=== PATIENT | female | born 1940 | race Caucasian/White ===

== ENCOUNTER 2018-10-20 09:37 | Inpatient (IN) | payer MEDICARE, BC ==
[2018-10-20] MEDS ORDERED: ETOMIDATE 20 MG INJ (10:46)
[2018-10-20] MEDS ORDERED: ROCURONIUM 50 MG INJ (10:46)
[2018-10-20] MEDS: VANCOMYCIN 1 GM (PMX) 250 ML IVPB ×2 (10:46→18:13)
[2018-10-20] MEDS ORDERED: LIDOCAINE 2% (SDV) 5 ML INJ (10:46)
[2018-10-20] MEDS ORDERED: MIDAZOLAM 1 MG/ML 2 ML INJ (10:46)
[2018-10-20] MEDS ORDERED: SUCCINYLCHOLINE CHLORIDE 100 MG/5 ML SYG IV (10:46)
[2018-10-20] MEDS: LACTATED RINGER'S 1,000 ML IV* (10:46)
[2018-10-20] MEDS ORDERED: MEPERIDINE 25 MG INJ IV (11:00)
[2018-10-20] MEDS ORDERED: LABETALOL HCL 20MG INJ IV (11:00)
[2018-10-20] MEDS ORDERED: hydrALAzine 20 MG INJ IV (11:00)
[2018-10-20] MEDS ORDERED: CA CHLORIDE 10% 10 ML SYRINGE (11:48)
[2018-10-20] MEDS ORDERED: HEPARIN 1000 UNITS/ML 10 ML INJ (11:48)
[2018-10-20] MEDS ORDERED: DIPHENHYDRAMINE 50 MG INJ IV (12:00)
[2018-10-20] MEDS ORDERED: AL HYDROX/MG HYDROX/SIMETH 30 ML CUP PO (12:00)
[2018-10-20] MEDS ORDERED: DIPHENHYDRAMINE 25 MG CAP PO (12:00)
[2018-10-20] MEDS ORDERED: MEPERIDINE 25 MG INJ IM ×2 (12:00→13:04)
[2018-10-20] MEDS ORDERED: CEPASTAT LOZENGE MT (12:00)
[2018-10-20] MEDS ORDERED: NALOXONE (0.4 MG/ML) INJ IV (12:00)
[2018-10-20] MEDS: VANCOMYCIN 1 GM INJ (12:50)
[2018-10-20] MEDS: THROMBIN (BOVINE) 5,000 UNIT VIAL TP (12:50)
[2018-10-20] MEDS: BUPIVACAINE 0.5%/EPI (SDV) 30 ML INJ (12:50)
[2018-10-20] MEDS: SURGIFOAM POWDER 1 GM KIT (12:50)
[2018-10-20] MEDS ORDERED: ONDANSETRON 4 MG INJ (14:00)
[2018-10-20] MEDS ORDERED: DEXAMETHASONE 4 MG/ML 5 ML INJ (14:00)
[2018-10-20] MEDS: ONDANSETRON 4 MG INJ IV (15:07)
[2018-10-20] MEDS: HYDROmorphONE 1 MG/5 ML IV SYRINGE IV ×3 (15:25→16:09)
[2018-10-20] MEDS ORDERED: hydrALAzine 20 MG INJ (15:32)
[2018-10-20] MEDS ORDERED: FENTAnyl 50 MCG/ML VIAL (17:04)
[2018-10-20] MEDS: MEPERIDINE 50 MG INJ IM ×2 (17:10→21:14)
[2018-10-20] MEDS: D5W-0.45 NACL + KCL 20 MEQ 1,000 ML IV ×2 (17:11→21:31)
[2018-10-20] MEDS ORDERED: ESOMEPRAZOLE MAG TRIHYDRATE 10 MG PO (18:00)
[2018-10-20] MEDS: traMADol 50 MG TAB PO ×2 (18:32→23:21)
[2018-10-20] MEDS: DOCUSATE SODIUM 100 MG CAP PO (21:14)
[2018-10-20] MEDS: ATORVASTATIN 10 MG TAB PO (21:14)
[2018-10-20] MEDS: PROPRANOLOL 20 MG TAB PO (21:28)
[2018-10-21] MEDS: LORAZEPAM 1 MG TAB PO ×2 (00:19→21:16)
[2018-10-21 05:04] LABS: ADD MAN DIFF? NO
[2018-10-21 05:12] LABS: BASOPHILS % 0.4 % (0.0-2.0); EOSINOPHILS % 0.1 % (0.0-7.0); HEMATOCRIT 34.1 % (37.0-47.0); HEMOGLOBIN 11.3 g/dl (12.0-16.0); LYMPHOCYTES # 0.8 10^3/ul (0.8-2.9); LYMPHOCYTES % 11.6 % (15.0-51.0); MEAN CORPUSCULAR HEMOGLOBIN 32.8 pg (29.0-33.0); MEAN CORPUSCULAR HGB CONC 33.1 g/dl (32.0-37.0); MEAN CORPUSCULAR VOLUME 99.1 fl (82.0-101.0); MEAN PLATELET VOLUME 10.7 fl (7.4-10.4); MONOCYTE # 0.7 10^3/ul (0.3-0.9); MONOCYTES % 10.1 % (0.0-11.0); NEUTROPHIL # 5.3 10^3/ul (1.6-7.5); NEUTROPHILS % 77.4 % (39.0-77.0); PLATELET COUNT 133 10^3/UL (140-415); RED BLOOD COUNT 3.44 10^6/ul (4.20-5.40); RED CELL DISTRIBUTION WIDTH 12.6 % (11.5-14.5)
[2018-10-21 05:12] LABS: WHITE BLOOD COUNT 6.8 10^3/ul (4.8-10.8)
[2018-10-21 05:33] LABS: ANION GAP 4 (5-13); BLOOD UREA NITROGEN 16 mg/dl (7-20); CALCIUM 9.1 mg/dl (8.4-10.2); CARBON DIOXIDE 30 mmol/L (21-31); CHLORIDE 103 mmol/L (97-110); CREATININE 0.71 mg/dl (0.44-1.00); GLUCOSE 134 mg/dl (70-220); MAGNESIUM 1.4 mg/dl (1.7-2.5); POTASSIUM 4.2 mmol/L (3.5-5.1); SODIUM 137 mmol/L (135-144)
[2018-10-21] MEDS: ACETAMINOPHEN 325 MG TAB PO (05:38)
[2018-10-21] MEDS: VANCOMYCIN 1 GM (PMX) 250 ML IVPB (05:38)
[2018-10-21] MEDS: ONDANSETRON 4 MG INJ IV ×3 (07:01→13:55)
[2018-10-21] MEDS: D5W-0.45 NACL + KCL 20 MEQ 1,000 ML IV (07:31)
[2018-10-21] MEDS ORDERED: ACET/BUTAL/CAFF/CODEINE CAP PO (08:30)
[2018-10-21] MEDS: PROPRANOLOL 20 MG TAB PO ×2 (09:00→20:26)
[2018-10-21] MEDS: DOCUSATE SODIUM 100 MG CAP PO ×2 (09:00→20:27)
[2018-10-21] MEDS: SOD CHLORIDE 0.9% 1,000 ML IV ×2 (09:37→21:17)
[2018-10-21] MEDS: PANTOPRAZOLE 40 MG INJ IV ×2 (09:37→18:00)
[2018-10-21] MEDS: METOCLOPRAMIDE 10 MG INJ IV ×2 (09:50→15:53)
[2018-10-21] MEDS: MEPERIDINE 50 MG INJ IM ×3 (09:57→20:27)
[2018-10-21] MEDS: MAGNESIUM SULFATE 3 GM in DEXTROSE 5% 100 ML IVPB (13:48)
[2018-10-21] MEDS ORDERED: METOCLOPRAMIDE 10 MG INJ IV (20:10)
[2018-10-21] MEDS: ATORVASTATIN 10 MG TAB PO (20:27)
[2018-10-22] MEDS: ACETAMINOPHEN 325 MG TAB PO ×3 (00:49→18:31)
[2018-10-22] MEDS: PANTOPRAZOLE 40 MG INJ IV ×2 (05:26→18:20)
[2018-10-22] MEDS: MEPERIDINE 50 MG INJ IM ×3 (05:29→21:45)
[2018-10-22 05:30] LABS: ADD MAN DIFF? NO
[2018-10-22 05:41] LABS: BASOPHILS % 0.1 % (0.0-2.0); EOSINOPHILS % 0.1 % (0.0-7.0); HEMATOCRIT 31.1 % (37.0-47.0); HEMOGLOBIN 10.7 g/dl (12.0-16.0); LYMPHOCYTES % 14.2 % (15.0-51.0); MEAN CORPUSCULAR HGB CONC 34.4 g/dl (32.0-37.0); MEAN PLATELET VOLUME 11.7 fl (7.4-10.4); MONOCYTE # 0.6 10^3/ul (0.3-0.9); MONOCYTES % 8.8 % (0.0-11.0); NEUTROPHIL # 5.5 10^3/ul (1.6-7.5); NEUTROPHILS % 76.4 % (39.0-77.0); PLATELET COUNT 124 10^3/UL (140-415); RED BLOOD COUNT 3.24 10^6/ul (4.20-5.40); RED CELL DISTRIBUTION WIDTH 12.5 % (11.5-14.5)
[2018-10-22 05:41] LABS: WHITE BLOOD COUNT 7.3 10^3/ul (4.8-10.8)
[2018-10-22] MEDS: SOD CHLORIDE 0.9% 1,000 ML IV ×2 (05:53→14:57)
[2018-10-22 06:10] LABS: ANION GAP 6 (5-13); BLOOD UREA NITROGEN 9 mg/dl (7-20); CALCIUM 8.6 mg/dl (8.4-10.2); CARBON DIOXIDE 28 mmol/L (21-31); CHLORIDE 101 mmol/L (97-110); GLUCOSE 99 mg/dl (70-220); PHOSPHORUS 2.9 mg/dl (2.5-4.9); POTASSIUM 3.5 mmol/L (3.5-5.1); SODIUM 135 mmol/L (135-144)
[2018-10-22] MEDS: METOCLOPRAMIDE 10 MG INJ IV ×3 (07:39→21:40)
[2018-10-22] MEDS: PROPRANOLOL 20 MG TAB PO ×2 (08:52→20:54)
[2018-10-22] MEDS: DEXAMETHASONE 4 MG/ML 1 ML INJ IV (08:53)
[2018-10-22] MEDS: DOCUSATE SODIUM 100 MG CAP PO ×2 (08:58→20:56)
[2018-10-22] MEDS: ACET/BUTAL/CAFF TAB PO ×2 (14:43→18:31)
[2018-10-22] MEDS: ATORVASTATIN 10 MG TAB PO (20:53)
[2018-10-22] MEDS: LORAZEPAM 1 MG TAB PO (23:07)
[2018-10-23] MEDS: ACET/BUTAL/CAFF TAB PO ×3 (00:24→17:45)
[2018-10-23] MEDS: ACETAMINOPHEN 325 MG TAB PO ×4 (00:24→21:47)
[2018-10-23] MEDS: SOD CHLORIDE 0.9% 1,000 ML IV ×2 (01:53→09:48)
[2018-10-23] MEDS: MEPERIDINE 50 MG INJ IM ×4 (04:07→15:59)
[2018-10-23] MEDS: METOCLOPRAMIDE 10 MG INJ IV (04:10)
[2018-10-23] MEDS: PANTOPRAZOLE 40 MG INJ IV (05:26)
[2018-10-23 05:51] LABS: ADD MAN DIFF? NO
[2018-10-23 05:58] LABS: BASOPHILS % 0.3 % (0.0-2.0); EOSINOPHILS % 0.4 % (0.0-7.0); HEMATOCRIT 32.3 % (37.0-47.0); HEMOGLOBIN 10.8 g/dl (12.0-16.0); LYMPHOCYTES % 14.9 % (15.0-51.0); MEAN CORPUSCULAR HEMOGLOBIN 32.5 pg (29.0-33.0); MEAN CORPUSCULAR HGB CONC 33.4 g/dl (32.0-37.0); MEAN CORPUSCULAR VOLUME 97.3 fl (82.0-101.0); MEAN PLATELET VOLUME 11.5 fl (7.4-10.4); MONOCYTE # 0.7 10^3/ul (0.3-0.9); MONOCYTES % 10.6 % (0.0-11.0); NEUTROPHILS % 73.1 % (39.0-77.0); PLATELET COUNT 132 10^3/UL (140-415); RED BLOOD COUNT 3.32 10^6/ul (4.20-5.40); RED CELL DISTRIBUTION WIDTH 12.6 % (11.5-14.5)
[2018-10-23 05:58] LABS: WHITE BLOOD COUNT 6.8 10^3/ul (4.8-10.8)
[2018-10-23 06:26] LABS: ALANINE AMINOTRANSFERASE 31 IU/L (13-69); ALBUMIN 3.1 g/dl (3.3-4.9); ALBUMIN/GLOBULIN RATIO 1.19; ALKALINE PHOSPHATASE 74 IU/L (42-121); ANION GAP 8 (5-13); ASPARTATE AMINO TRANSFERASE 34 IU/L (15-46); BILIRUBIN,INDIRECT 0.4 mg/dl (0-1.1); BILIRUBIN,TOTAL 0.4 mg/dl (0.2-1.3); BLOOD UREA NITROGEN 12 mg/dl (7-20); CALCIUM 8.7 mg/dl (8.4-10.2); CARBON DIOXIDE 26 mmol/L (21-31); CHLORIDE 105 mmol/L (97-110); CREATININE 0.57 mg/dl (0.44-1.00); GLUCOSE 81 mg/dl (70-220); POTASSIUM 3.5 mmol/L (3.5-5.1); SODIUM 139 mmol/L (135-144); TOTAL PROTEIN 5.7 g/dl (6.1-8.1)
[2018-10-23 06:41] LABS: PHOSPHORUS 2.5 mg/dl (2.5-4.9)
[2018-10-23 06:41] LABS: MAGNESIUM 1.7 mg/dl (1.7-2.5)
[2018-10-23] MEDS: PROPRANOLOL 20 MG TAB PO ×2 (08:12→21:44)
[2018-10-23] MEDS: DOCUSATE SODIUM 100 MG CAP PO ×2 (08:20→21:43)
[2018-10-23] MEDS: POTASSIUM CHLORIDE (SR) 10 MEQ TAB PO (09:47)
[2018-10-23] MEDS: PANTOPRAZOLE (EC) 40 MG TAB PO (17:44)
[2018-10-23] MEDS: MEPERIDINE 50 MG INJ IV ×2 (18:18→20:01)
[2018-10-23] MEDS: MAGNESIUM SULFATE 2 GM/50 ML 50 ML IVPB (20:00)
[2018-10-23] MEDS: ATORVASTATIN 10 MG TAB PO (21:43)
[2018-10-23] MEDS: traMADol 50 MG TAB PO (21:47)
[2018-10-23] MEDS ORDERED: MEPERIDINE 50 MG INJ IV (22:00)
[2018-10-24] MEDS: MEPERIDINE 50 MG INJ IV ×4 (00:01→21:28)
[2018-10-24] MEDS: LORAZEPAM 1 MG TAB PO ×2 (01:14→23:08)
[2018-10-24] MEDS: traMADol 50 MG TAB PO ×3 (03:31→15:43)
[2018-10-24] MEDS: ACETAMINOPHEN 325 MG TAB PO ×3 (03:31→15:43)
[2018-10-24] MEDS: DOCUSATE SODIUM 100 MG CAP PO ×2 (08:33→21:09)
[2018-10-24] MEDS: PANTOPRAZOLE (EC) 40 MG TAB PO ×2 (08:33→18:32)
[2018-10-24] MEDS: PROPRANOLOL 20 MG TAB PO ×2 (08:34→21:09)
[2018-10-24] MEDS: SOD CHLORIDE 0.9% 1,000 ML IV (14:27)
[2018-10-24] MEDS: ATORVASTATIN 10 MG TAB PO (21:08)
[2018-10-25] MEDS: traMADol 50 MG TAB PO ×6 (00:09→22:29)
[2018-10-25] MEDS: ACETAMINOPHEN 325 MG TAB PO ×5 (00:10→22:28)
[2018-10-25 05:19] LABS: ADD MAN DIFF? NO
[2018-10-25 05:24] LABS: WHITE BLOOD COUNT 4.5 10^3/ul (4.8-10.8)
[2018-10-25 05:24] LABS: BASOPHILS % 0.7 % (0.0-2.0); EOSINOPHILS # 0.2 10^3/ul (0.0-0.5); EOSINOPHILS % 3.8 % (0.0-7.0); HEMATOCRIT 31.3 % (37.0-47.0); HEMOGLOBIN 10.7 g/dl (12.0-16.0); LYMPHOCYTES % 22.6 % (15.0-51.0); MEAN CORPUSCULAR HEMOGLOBIN 33.5 pg (29.0-33.0); MEAN CORPUSCULAR HGB CONC 34.2 g/dl (32.0-37.0); MEAN CORPUSCULAR VOLUME 98.1 fl (82.0-101.0); MEAN PLATELET VOLUME 10.6 fl (7.4-10.4); MONOCYTE # 0.3 10^3/ul (0.3-0.9); MONOCYTES % 7.2 % (0.0-11.0); NEUTROPHIL # 2.9 10^3/ul (1.6-7.5); PLATELET COUNT 150 10^3/UL (140-415); RED BLOOD COUNT 3.19 10^6/ul (4.20-5.40); RED CELL DISTRIBUTION WIDTH 12.3 % (11.5-14.5)
[2018-10-25 05:53] LABS: ANION GAP 7 (5-13); BLOOD UREA NITROGEN 9 mg/dl (7-20); CALCIUM 8.9 mg/dl (8.4-10.2); CARBON DIOXIDE 29 mmol/L (21-31); CHLORIDE 101 mmol/L (97-110); CREATININE 0.56 mg/dl (0.44-1.00); GLUCOSE 91 mg/dl (70-220); MAGNESIUM 1.5 mg/dl (1.7-2.5); PHOSPHORUS 3.3 mg/dl (2.5-4.9); POTASSIUM 3.6 mmol/L (3.5-5.1); SODIUM 137 mmol/L (135-144)
[2018-10-25] MEDS: PANTOPRAZOLE (EC) 40 MG TAB PO ×2 (06:50→18:19)
[2018-10-25] MEDS: MEPERIDINE 50 MG INJ IV (06:56)
[2018-10-25] MEDS: DOCUSATE SODIUM 100 MG CAP PO ×2 (09:23→20:51)
[2018-10-25] MEDS: PROPRANOLOL 20 MG TAB PO ×2 (09:24→20:51)
[2018-10-25] MEDS: BISACODYL 10 MG SUPP PR (09:28)
[2018-10-25] MEDS: LACTULOSE 30ML CUP PO (14:11)
[2018-10-25] MEDS: MAGNESIUM SULFATE 3 GM in DEXTROSE 5% 100 ML IVPB (15:23)
[2018-10-25] MEDS: ATORVASTATIN 10 MG TAB PO (20:51)
[2018-10-25] MEDS: METOCLOPRAMIDE 10 MG INJ IV (22:33)
[2018-10-26] MEDS: LORAZEPAM 1 MG TAB PO ×2 (00:27→16:39)
[2018-10-26 05:37] LABS: ADD MAN DIFF? NO
[2018-10-26 05:48] LABS: BASOPHILS % 0.6 % (0.0-2.0); EOSINOPHILS # 0.1 10^3/ul (0.0-0.5); HEMATOCRIT 32.9 % (37.0-47.0); HEMOGLOBIN 11.5 g/dl (12.0-16.0); LYMPHOCYTES % 19.7 % (15.0-51.0); MEAN CORPUSCULAR HEMOGLOBIN 33.1 pg (29.0-33.0); MEAN CORPUSCULAR VOLUME 94.8 fl (82.0-101.0); MEAN PLATELET VOLUME 10.6 fl (7.4-10.4); MONOCYTE # 0.4 10^3/ul (0.3-0.9); MONOCYTES % 7.8 % (0.0-11.0); NEUTROPHIL # 3.5 10^3/ul (1.6-7.5); NEUTROPHILS % 69.3 % (39.0-77.0); PLATELET COUNT 175 10^3/UL (140-415); RED BLOOD COUNT 3.47 10^6/ul (4.20-5.40)
[2018-10-26] MEDS: PANTOPRAZOLE (EC) 40 MG TAB PO (06:00)
[2018-10-26 07:13] LABS: ANION GAP 9 (5-13); BLOOD UREA NITROGEN 8 mg/dl (7-20); CARBON DIOXIDE 30 mmol/L (21-31); CHLORIDE 97 mmol/L (97-110); CREATININE 0.48 mg/dl (0.44-1.00); GLUCOSE 113 mg/dl (70-220); MAGNESIUM 1.7 mg/dl (1.7-2.5); PHOSPHORUS 3.6 mg/dl (2.5-4.9); POTASSIUM 3.4 mmol/L (3.5-5.1); SODIUM 136 mmol/L (135-144)
[2018-10-26] MEDS: PROPRANOLOL 20 MG TAB PO ×2 (08:37→16:00)
[2018-10-26] MEDS: DOCUSATE SODIUM 100 MG CAP PO (08:37)
[2018-10-26] MEDS: NA PHOSPHATE/BIPHOS 133 ML ENEMA PR (10:12)
[2018-10-26] MEDS: POTASSIUM CHLORIDE (SR) 10 MEQ TAB PO (13:57)
[2018-10-26] MEDS: AMLODIPINE 2.5 MG TAB PO (15:59)
== END 2018-10-26 18:20 | disposition home or self-care (01) | DRG 520 ==
LOC: REC 09:37 → MS1 16:00
PROC: 01NB0ZZ Release Lumbar Nerve, Open Approach (ICD-10-PCS; principal; 2018-10-20 11:30)
PROC: 0ST20ZZ Resection of Lumbar Vertebral Disc, Open Approach (ICD-10-PCS; 2018-10-20 11:30)
DX: M51.16 Intervertebral disc disorders with radiculopathy, lumbar region (principal); M48.061 Spinal stenosis, lumbar region without neurogenic claudication; E83.42 Hypomagnesemia; M41.86 Other forms of scoliosis, lumbar region; M51.26 Other intervertebral disc displacement, lumbar region; E78.5 Hyperlipidemia, unspecified; R11.2 Nausea with vomiting, unspecified
CPT/HCPCS: 72110; 72158; 80048; 80053; 83735; 84100; 85025; 86999; 88304; 97110; 97116; 97163; 97530; 99217